=== PATIENT | female | born 1965 | race Caucasian/White ===

== ENCOUNTER 2017-08-18 12:23 | Emergency (ER) | payer MEDICAID ==
[~2017-08-18] VITALS: Ht 175.3 cm; Wt 68.0 kg
[2017-08-18 13:45] VITALS: BP 119/77
[2017-08-18] MEDS ORDERED: diphenhydrAMINE HCL 50 MG CAPSULE ONE (14:28)
[2017-08-18] MEDS ORDERED: predniSONE 20 MG TABLET ONE (14:28)
[2017-08-18] MEDS ORDERED: FAMOTIDINE (20 MG) 20 MG TABLET ONE (14:28)
[2017-08-18] MEDS ORDERED: predniSONE 10 MG TABLET PO ONE (14:30)
[2017-08-18] MEDS ORDERED: FAMOTIDINE (20 MG) 20 MG TABLET PO ONE (14:30)
[2017-08-18] MEDS ORDERED: diphenhydrAMINE HCL 50 MG CAPSULE PO ONE (14:30)
== END 2017-08-18 14:35 | disposition home or self-care (01) ==
LOC: ER 12:24
DX: T78.40XA Allergy, unspecified, initial encounter (principal); F17.200 Nicotine dependence, unspecified, uncomplicated; F41.9 Anxiety disorder, unspecified; Z95.0 Presence of cardiac pacemaker
CPT/HCPCS: A4606; Q0163; Z7610